=== PATIENT | female | born 1995 | race African-American/Black ===

== ENCOUNTER 2018-09-24 16:10 | Emergency (ER) | payer OTHER ==
[2018-09-24 16:18] VITALS: BP 114/66; PULSE 79; TEMP 98.4; BMI 39.9
--- NOTE | 2018-09-24 16:28 | PDOC ---
History of Present Illness - General Chief Complaint: Pain Stated Complaint: ABD PAIN Time Seen by Provider: 09/24/18 16:28 History Source: Patient Exam Limitations: No Limitations - History of Present Illness Initial Comments: 09/24/18 16:54 23 year old female with PMH cholelithiasis presented to ED for RUQ pain since 1300 today. Pt reported her pain is constant, non-radiating, no alleviating or aggravating factors, she is unable to describe the quality of the pain. She admitted to nausea. She denied vomiting, diarrhea, constipation, dysuria, chest pain, shortness of breath, cough. Allergies: PCN, clindamycin Surgery - tonsillectomy Last ate - yesterday Past History - Past Medical History Allergies/Adverse Reactions: Allergies Allergy/AdvReac Type Severity Reaction Status Date / Time clindamycin Allergy Verified 09/24/18 16:16 Penicillins Allergy Verified 09/24/18 16:16 Home Medications: Ambulatory Orders NK [No Known Home Medication] 09/24/18 COPD: No - Surgical History Cardiac Surgery: No - Immunization History Immunization Up to Date: No - Suicide/Smoking/Psychosocial Hx Smoking History: Never smoked Have you smoked in the past 12 months: No Information on smoking cessation initiated: No Hx Alcohol Use: No Drug/Substance Use Hx: No Review of Systems - Review of Systems Able to Perform ROS?: Yes Comments:: General: denied fever, chills, generalized weakness. HEENT: denied sore throat, rhinorrhea, ear pain. Heart: denied chest pain, palpitations, syncope, diaphoresis. Respiratory: denied shortness of breath, cough, sputum production, hemoptysis. Abdomen: admitted to abdominal pain, nausea. denied vomiting, diarrhea, constipation, blood in stool. : denied dysuria, increased urinary frequency, hematuria, urinary incontinence , flank pain. Back: denied back pain. Musculoskeletal: denied joint pain, muscle pain, joint swelling. Neurological: denied headache, dizziness, numbness, tingling, weakness. Skin: denied rash, laceration, abrasion. *Physical Exam - Vital Signs Last Vital Signs Temp Pulse Resp BP Pulse Ox 98.4 F 79 18 114/66 100 09/24/18 16:13 09/24/18 16:13 09/24/18 16:13 09/24/18 16:13 09/24/18 16:13 - Physical Exam Comments: Constitutional: Well-nourished, Well-developed, appearing stated age. HEENT: head is normocephalic, atraumatic. EOMI. PERRLA. Neck: supple. Full ROM. Heart: regular rhythm. no murmurs, rubs or gallops. Lungs: clear to auscultation bilaterally. no crackles, rhonchi or wheezing. no stridor. Abdomen: soft, flat. tenderness to palpation of epigastrium. rodriguez negative. mcburney nontender. normal bowel sounds. no rebound, guarding, masses. Extremities: peripheral pulses intact. no lower extremity edema. Neurological: CN 2-12 grossly intact. moves all four extremities. Psych: awake, alert, oriented x3. follows commands. answers questions appropriately. Procedures - Bedside Ultrasound Bedside Ultrasound: Gallbladder Remarks: 09/24/18 17:09 Bedside RUQ US performed by myself and Dr. Parsons. -Stone noted to be in the neck of the gall bladder -No pericholecystic fluid -GB wall 0.3 mm -Sonomurphys positive Pending official study and report. ED Treatment Course - LABORATORY CBC & Chemistry Diagram: 09/24/18 16:37 09/24/18 20:20 - RADIOLOGY Radiograph Interpretation: 09/24/18 18:[address] Parsons's read: no infiltrate. sharp costophrenic angles. no cardiomegaly. -Pending official report Medical Decision Making - Medical Decision Making 09/24/18 16:53 23 year old female with above PMH presented to ED for RUQ pain since 1300 today. Initial Vital Signs Temp Pulse Resp BP Pulse Ox 98.4 F 79 18 114/66 100 09/24/18 16:13 09/24/18 16:13 09/24/18 16:13 09/24/18 16:13 09/24/18 16:13 Afebrile. No tachycardia. NO tachypnea. No hypotension. No hypoxia on room air. Labs ordered: CBC, CMP, lipase, serum , UA/UC, T/Sx2 Imaging ordered: RUQ US Medications ordered: pepcid, maalox, zofran, tylenol IV, normal saline 1000 cc EKG performed at 1947: rate 72, regular rhythm, normal axis, normal intervals, no acute ST changes, QTc 435. NPO order placed. 09/24/18 17:10 Urine Test Results Urine Color Yellow 09/24/18 16:49 Urine Appearance Clear 09/24/18 16:49 Urine pH 6.0 (5.0-8.0) 09/24/18 16:49 Ur Specific [place] 1.027 (1.010-1.035) 09/24/18 16:49 Urine Protein Negative (NEGATIVE) 09/24/18 16:49 Urine Glucose (UA) Negative (NEGATIVE) 09/24/18 16:49 Urine Ketones Negative (NEGATIVE) 09/24/18 16:49 Urine Blood Negative (NEGATIVE) 09/24/18 16:49 Urine Nitrite Negative (NEGATIVE) 09/24/18 16:49 Urine Bilirubin Negative (NEGATIVE) 09/24/18 16:49 Ur Leukocyte Esterase 1+ (NEGATIVE) H 09/24/18 16:49 WBC>5, positive epithelial cells Contaminated sample with no dysuria symptoms. No UTI. 09/24/18 17:19 CBC WBC 5.7 K/mm3 (4.0-10.0) 09/24/18 16:37 RBC 3.97 M/mm3 (3.60-5.2) 09/24/18 16:37 Hgb 11.5 GM/dL (10.7-15.3) 09/24/18 16:37 Hct 35.3 % (32.4-45.2) 09/24/18 16:37 MCV 89.1 fl (80-96) 09/24/18 16:37 MCH 29.0 pg (25.7-33.7) 09/24/18 16:37 MCHC 32.6 g/dl (32.0-36.0) 09/24/18 16:37 RDW 14.0 % (11.6-15.6) 09/24/18 16:37 Plt Count 258 K/MM3 (134-434) 09/24/18 16:37 MPV 8.6 fl (7.5-11.1) 09/24/18 16:37 Absolute Neuts (auto) 2.7 K/mm3 (1.5-8.0) 09/24/18 16:37 Neutrophils % 46.8 % (42.8-82.8) 09/24/18 16:37 Lymphocytes % 44.2 % (8-40) H 09/24/18 16:37 Monocytes % 5.9 % (3.8-10.2) 09/24/18 16:37 Eosinophils % 2.2 % (0-4.5) 09/24/18 16:37 Basophils % 0.9 % (0-2.0) 09/24/18 16:37 Nucleated RBC % 0 % (0-0) 09/24/18 16:37 No leukocytosis. No anemia. 09/24/18 17:33 INR, PTT INR 0.97 (0.83-1.09) 09/24/18 16:37 09/24/18 17:45 CMP Sodium 139 mmol/L (136-145) 09/24/18 16:37 Potassium 4.4 mmol/L (3.5-5.1) 09/24/18 16:37 Chloride 108 mmol/L (98-107) H 09/24/18 16:37 Carbon Dioxide 23 mmol/L (21-32) 09/24/18 16:37 Anion Gap 8 MMOL/L (8-16) 09/24/18 16:37 BUN 13.9 mg/dL (7-18) 09/24/18 16:37 Creatinine 0.8 mg/dL (0.55-1.3) 09/24/18 16:37 Est GFR (CKD-EPI)AfAm 120.44 09/24/18 16:37 Est GFR (CKD-EPI)NonAf 103.92 09/24/18 16:37 Random Glucose 100 mg/dL (74-106) 09/24/18 16:37 Calcium 9.5 mg/dL (8.5-10.1) 09/24/18 16:37 Total Bilirubin 0.2 mg/dL (0.2-1) 09/24/18 16:37 AST 12 U/L (15-37) L 09/24/18 16:37 ALT 19 U/L (13-61) 09/24/18 16:37 Alkaline Phosphatase 65 U/L (45-117) 09/24/18 16:37 Total Protein 7.8 g/dl (6.4-8.2) 09/24/18 16:37 Albumin 3.8 g/dl (3.4-5.0) 09/24/18 16:37 Lipase 484 U/L (73-393) H 09/24/18 16:37 Serum , Qual Negative 09/24/18 16:37 No electrolyte abnormalities. No CORKY. No transaminitis. Lipase elevated - but not 3X normal Serum testing negative. Imaging ordered: CT abdomen/pelvis with IV contrast 09/24/18 19:00 Pt reassessed, reported improvement of pain, abdomen nontender to palpation. 09/24/18 19:48 CT report: FINDINGS: Lower lung sandoval are clear. There are no gallstones identified within the distended gallbladder with septation. No biliary dilatation. Liver, pancrease, spleen, adrenal glands are within normal. No renal stones are seen or evidence of obstructive uropathy. Abdominal aorta without AAA or dissection. There is no retroperitoneal hemorrhage or pathologic adenopathy. The appendix is normal. No evidence of bowel obstruction, ascites, abscess, free air or diverticulitis. Bladder and uterus unremarkable. Spine and bony pelvis is without fracture or destructive suspicious lesion. IMPRESSION: Appendix normal. Distended gallbladder. If appropriate follow-up with HIDA scan to evaluate for gallbladder dyskinesia. 09/24/18 19:52 Pt reassessed, reported no pain, abdomen soft/nontender. Results given to patient, pt reported she would like to go home and be managed outpatient. RUQ US Report: FINDINGS: No evidence of layering sludge, polyp or gallstones. Sonographic Rodriguez's sign is negative. There is no pericholecystic fluid.. Gallbladder is distended measuring 9.5 cm in length and width normal wall thickness at 2.8 mm. Common bile duct normal at 3.6 mm. Liver is normal in echotexture without obvious hepatic mass or intrahepatic biliary dilatation. Doppler interrogation of the main portal vein demonstrates normal hepatopedal flow. The visualized pancreas and right kidney are within normal. There is no hydronephrosis. No ascites. IMPRESSION: No evidence of cholelithiasis or cholecystitis. Distended gallbladder. If appropriate follow-up with HIDA scan to rule out gallbladder dyskinesia. Pending repeat CMP and lipase. 09/24/18 20:56 CMP Sodium 139 mmol/L (136-145) 09/24/18 20:20 Potassium 4.2 mmol/L (3.5-5.1) 09/24/18 20:20 Chloride 109 mmol/L (98-107) H 09/24/18 20:20 Carbon Dioxide 23 mmol/L (21-32) 09/24/18 20:20 Anion Gap 8 MMOL/L (8-16) 09/24/18 20:20 BUN 11.8 mg/dL (7-18) 09/24/18 20:20 Creatinine 0.7 mg/dL (0.55-1.3) 09/24/18 20:20 Est GFR (CKD-EPI)AfAm 141.54 09/24/18 20:20 Est GFR (CKD-EPI)NonAf 122.12 09/24/18 20:20 Random Glucose 112 mg/dL (74-106) H 09/24/18 20:20 Calcium 9.0 mg/dL (8.5-10.1) 09/24/18 20:20 Total Bilirubin 0.1 mg/dL (0.2-1) L 09/24/18 20:20 AST 11 U/L (15-37) L 09/24/18 20:20 ALT 18 U/L (13-61) 09/24/18 20:20 Alkaline Phosphatase 68 U/L (45-117) 09/24/18 20:20 Total Protein 7.6 g/dl (6.4-8.2) 09/24/18 20:20 Albumin 3.7 g/dl (3.4-5.0) 09/24/18 20:20 Lipase 251 U/L (73-393) 09/24/18 20:20 No electrolyte abnormalities. No CORKY. No transaminitis. Lipase elevation resolved. Pt discharged. Pt informed to follow up with PCP/general surgery/GI. *DC/Admit/Observation/Transfer Diagnosis at time of Disposition: Epigastric pain, Elevated lipase - Discharge Dispostion Disposition: HOME Condition at time of disposition: Improved Decision to Admit order: No - Referrals Referrals: Ajith Marshall [Primary Care Provider] - Michael Weiss MD [Staff Physician] - Vincent Mckeon MD [Staff Physician] - Hussein Zhu MD [Staff Physician] - Min Worthy MD [Staff Physician] - Gautam Albarran MD [Staff Physician] - Christofer Carpenter DO [Staff Physician] - - Patient Instructions Printed Discharge Instructions: Lipase, Clear Liquid Diet, DI for Abdominal Pain-Adult Additional Instructions: You were seen today for abdominal pain. Your lab work showed an elevated lipase level, which decreased during your ER visit. This can be associated with a mild pancreatitis. Have this level rechecked within 7 days by your primary care doctor. The rest of your blood work was normal. Your EKG was normal. Your Chest X-ray was normal. Your ultrasound showed a distended gall bladder with no stones. Your Cat-Scan was normal. Take Tylenol 1000 mg every 8 hours for pain. Take over the counter. You can also take Ibuprofen 600 mg every 6 hours as needed for pain. Take over the counter. Take with food as this medication can irritate your stomach. Tylenol and Ibuprofen are not the same medication. Eat a clear liquid diet for the next 24 hours to give your pancreas a rest. Progress your diet as tolerated after 24 hours. Follow up with your primary care doctor within 3 days. Your care is not complete until you follow up. Bring all paperwork given to you today to your appointment. Follow up with a general surgeon within 3 days. Your care is not complete until you follow up. Bring all paperwork given to you today to your appointment. I have provided you with multiple referrals - Mike Weiss Lyles. Follow up with a assistant offset press operator within 3 days. Your care is not complete until you follow up. Bring all paperwork given to you today to your appointment. I have provided you with multiple referrals - Deion Worthy Digiornio. Return to the Emergency Department for increasing pain, vomiting, blood in vomit , blood in stool, chest pain, shortness of breath, fever or any other new, worsening or concerning symptoms. - Post Discharge Activity Forms/Work/School Notes: Back to Work
[2018-09-24] MEDS ORDERED: ONDANSETRON 4 MG/2 ML VIAL IVPUSH ONE (16:33)
[2018-09-24] MEDS ORDERED: SODIUM CHLORIDE 1,000 ML IV STA (16:33)
[2018-09-24] MEDS ORDERED: ACETAMINOPHEN 1000 MG/100 ML VIAL (NON FORMULARY) IVPB ONE (16:33)
[2018-09-24] MEDS ORDERED: MAG HYDROX/AL HYDROX/SIMETH 30 ML UNIT-DOSE CUP PO ONE (16:51)
[2018-09-24] MEDS ORDERED: FAMOTIDINE 20 MG/50 ML IVPB 20 MG/50 ML MG IVPB ONE ×2 (16:51→17:08)
[2018-09-24 17:06] LABS: EPI CELLS 8.4 /HPF (0-5/HPF); HYALINE CASTS 4 /lpf (0-8); URINE APPEARANCE CLEAR; URINE BACTERIA 408.5 /hpf (NEGATIVE); URINE BILIRUBIN NEGATIVE (NEGATIVE); URINE COLOR YELLOW; URINE GLUCOSE (UA) NEGATIVE (NEGATIVE); URINE KETONE NEGATIVE (NEGATIVE); URINE LEUK ESTERASE 1+ (NEGATIVE); URINE NITRITE NEGATIVE (NEGATIVE); URINE PROTEIN NEGATIVE (NEGATIVE); URINE RBC 1 /hpf (0-4); URINE UROBILINOGEN 0.2 mg/dL (0.2-1.0); URINE WBC 14 /hpf (0-5)
[2018-09-24] MEDS ORDERED: ACETAMINOPHEN INJECTION 100 ML IVPB ONE (17:07)
[2018-09-24] MEDS ORDERED: ONDANSETRON 4 MG/2 ML VIAL ONE (17:07)
[2018-09-24] MEDS ORDERED: MAG HYDROX/AL HYDROX/SIMETH 30 ML UNIT-DOSE CUP ONE (17:07)
[2018-09-24 17:10] LABS: BASO % 0.9 % (0-2.0); EOS % 2.2 % (0-4.5); HEMATOCRIT 35.3 % (32.4-45.2); HEMOGLOBIN 11.5 GM/dL (10.7-15.3); LYMPH % 44.2 % (8-40); MCHC 32.6 g/dl (32.0-36.0); MEAN CELL VOLUME 89.1 fl (80-96); MEAN PLT VOLUME 8.6 fl (7.5-11.1); MONO % 5.9 % (3.8-10.2); NEUT % 46.8 % (42.8-82.8); PLATELET COUNT 258 K/MM3 (134-434); RBC 3.97 M/mm3 (3.60-5.2); WHITE BLOOD COUNT 5.7 K/mm3 (4.0-10.0)
[2018-09-24 17:20] LABS: INR 0.97 (0.83-1.09); PROTHROMBIN TIME (PATIENT) 11.4 SEC (9.7-13.0)
[2018-09-24 17:22] LABS: ACTIVATED PTT 29.9 SECONDS (25.2-36.5)
--- NOTE | 2018-09-24 17:42 | PDOC ---
Documentation entered by Alberto Mcclain SCRIBE, acting as scribe for Zoie Parsons DO. Zoie Parsons DO: This documentation has been prepared by the Johny jacobson Daniel, SCRIBE, under my direction and personally reviewed by me in its entirety. I confirm that the documentation accurately reflects all work, treatment, procedures, and medical decision making performed by me. Attending Attestation - Resident Resident Name: Shira Tafoya - ED Attending Attestation I have performed the following: I have examined & evaluated the patient, The case was reviewed & discussed with the resident, I agree w/resident's findings & plan, Exceptions are as noted - HPI HPI: 09/24/18 17:43 The patient is a 23 year old female with a past medical history of tonsillectomy and gallstones (diagnosed 1 month) here today for evaluation of abdominal pain. The patient reports that her abdominal pain began last night after eating pizza and describes it as epigastric and right upper quadrant pain. Patient denies headache, lightheadedness. Denies fever, chills. Denies chest pain, shortness of breath. Denies nausea, vomiting, diarrhea. Denies urinary symptoms. Allergies: clindamycin, penicillins PCP: Ajith Marshall - Physicial Exam PE: 09/24/18 17:43 Constitutional: Awake, alert, oriented. No acute distress. Head: Normocephalic. Atraumatic Eyes: PERRL. EOMI. Conjunctivae are not pale. ENT: Mucous membranes are moist and intact. Posterior pharynx without exudates or erythema. Uvula midline. Neck: Supple. Full ROM. No lymphadenopathy. Cardiovascular: Regular rate. Regular rhythm. S1, S2 regular. Distal pulses are 2+ and symmetric. Pulmonary/Chest: No evidence of respiratory distress. Clear to auscultation bilaterally No wheezing, rales or rhonchi. Abdominal: +epigastric and right upper quadrant tenderness to palpation. Soft and non-distended. No rebound, guarding or rigidity. No organomegaly. No palpable masses. Good bowel sounds. Back: No CVA tenderness. Musculoskeletal: No edema. No cyanosis. No clubbing. Full range of motion in all extremities. Nocalf tenderness. Radial/pedal pulses are intact and 2+ bilaterally Skin: Skin is warm and dry. No petechiae. No purpura. Neurological: Alert and oriented to person, place, and time. Cranial nerves II -XII are grossly intact. Normal speech. Strength is grossly symmetric. No sensory deficits. Psychiatric: Good eye contact. Normal interaction, affect and behavior. - Medical Decision Making 09/24/18 17:38 I, Dr. Zoie Parsons, DO, attest that this document has been prepared under my direction and personally reviewed by me in its entirety. I further attest, that it accurately reflects all work, treatment, procedures and medical decision -making performed by me. 09/24/18 17:38 a/p: 23yo female with RUQ and epigastric pain and nausea -pain after eating pizza yesterday -pt with gallstone dx 1 month ago -pt with nausea today, no vomiting, no diarrhea, persistent pain -will send labs, ruq ultrasound -bedside RUQ ultrasound performed, indication - pain and known stone: gb wall thickness 3mm, gallstone that is nonmobile in the neck, +sonographic moore, no pericholecystic fluid -will give ivf hydration, zofran, pepcid, tylenol for pain, npo pending further eval 09/24/18 18:21 cxr clear ultrasound penidng elevated lipase concern for gallstone pancreatitis 09/24/18 18:44 pt denies dysuria given elevated lipase and bedside ultrasound shows gallstone will obtain ct abd/ pelvis 09/24/18 19:49 ct does not show cholelithiasis, does show a distended gb no acute pancreatitis on ct ultrasound pending official read 09/24/18 19:57 distended gb on ultrasound will repeat lipase pt feeling much better and wants to go home Heart Score/ECG Review - ECG Intrepretation Comment:: 09/24/18 20:02 sinus at 72, nl axis, nl interval, no acute st/t wave findings
[2018-09-24 17:44] LABS: ALBUMIN 3.8 g/dl (3.4-5.0); BILIRUBIN,TOTAL 0.2 mg/dL (0.2-1); BLOOD UREA NITROGEN 13.9 mg/dL (7-18); CALCIUM 9.5 mg/dL (8.5-10.1); CREATININE 0.8 mg/dL (0.55-1.3); POTASSIUM 4.4 mmol/L (3.5-5.1); TOT PROT 7.8 g/dl (6.4-8.2)
[2018-09-24 20:55] LABS: ALBUMIN 3.7 g/dl (3.4-5.0); BILIRUBIN,TOTAL 0.1 mg/dL (0.2-1); BLOOD UREA NITROGEN 11.8 mg/dL (7-18); CREATININE 0.7 mg/dL (0.55-1.3); POTASSIUM 4.2 mmol/L (3.5-5.1); TOT PROT 7.6 g/dl (6.4-8.2)
--- NOTE | 2018-09-25 17:02 | EKG ---
Test Reason : Blood Pressure : / mmHG Vent. Rate : 072 BPM Atrial Rate : 072 BPM P-R Int : 158 ms QRS Dur : 080 ms QT Int : 398 ms P-R-T Axes : 067 068 059 degrees QTc Int : 435 ms NORMAL SINUS RHYTHM NORMAL ECG NO PREVIOUS ECGS AVAILABLE Confirmed by MD SOL, HÉCTOR ([id number]) on 09/25/2018 5:02:01 PM Referred By: Confirmed By:HÉCTOR HORTON MD
== END 2018-09-24 21:35 | disposition home or self-care (01) ==
LOC: JER 16:10
PROC: BF42ZZZ Ultrasonography of Gallbladder (ICD-10-PCS; principal; 2018-09-24)
PROC: 3E033GC Introduction of Other Therapeutic Substance into Peripheral Vein, Percutaneous Approach (ICD-10-PCS; 2018-09-24)
PROC: 3E033GC Introduction of Other Therapeutic Substance into Peripheral Vein, Percutaneous Approach (ICD-10-PCS; 2018-09-24)
DX: R74.8 Abnormal levels of other serum enzymes (principal)
CPT/HCPCS: 36415; 71046-TC-FY; 74177-TC; 76705-TC; 80053; 81003; 83690; 84703; 85025; 85610; 85730; 86850; 86900; 86901; 87086; 93005; 93010; 96365; 96375; 99284-25; J0131; J7030